=== PATIENT | female | born 1985 | race Caucasian/White ===

== ENCOUNTER 2019-07-31 18:25 | Emergency (ER) | payer OTHER ==
[2019-07-31] MEDS ORDERED: TYLENOL 325 MG PO ONE (18:38)
[2019-07-31] MEDS ORDERED: Robitussin AC Syrup Unit Dose Cup PO ONE (18:39)
[2019-07-31] MEDS ORDERED: Robitussin AC Syrup Unit Dose Cup ONE (18:42)
[2019-07-31] MEDS ORDERED: Sodium Chloride 0.9% 1000 ML 1,000 ML IV STA (18:42)
[2019-07-31] MEDS ORDERED: TYLENOL 325 MG ONE (18:42)
[2019-07-31] MEDS ORDERED: Sodium Chloride 0.9% 1000 ML 1,000 ML ONE (18:42)
--- NOTE | 2019-07-31 18:43 | ERPHSYRPT ---
- History of Present Illness Source: patient Exam Limitations: no limitations Patient Subjective Stated Complaint: Pt was diagnosed with lalita ear infections on Thursday, pt was placed on Augmentin but she feels worse now, cough, chest tightness, shortness of breath, headache Triage Nursing Assessment: Pt brought into the ER by her , lungs clear, denies pain but has a headache, pulses normal, tachycardic, afebrile, coughing Timing/Duration: day(s) (two) Cough Quality/Degree: dry cough Associated Symptoms: fever, chills, chest pain/soreness, cough, dizziness, earache, headache, muscle aches, sore throat International travel in last 2 weeks: No Hx Tetanus, Diphtheria Vaccination/Date Given: No Hx Influenza Vaccination/Date Given: No Hx Pneumococcal Vaccination/Date Given: No <ELAINA,MALIKA - Last Filed: 07/31/19 19:06> <ARTURO BLANKENSHIP)UMANG - Last Filed: 07/31/19 20:20> - History of Present Illness Time Seen by Provider: 07/31/19 18:40 Physician History: c/o cough, fever, chest congestion for 2 days Pt was diagnosed with bilateral ear infections on Thursday, pt was placed on Augmentin but she feels worse now, cough, chest tightness, shortness of breath, headache (ELAINA,MALIKA) Allergies/Adverse Reactions: levofloxacin [From Levaquin] Allergy (Severe, Verified 07/31/19 18:35) Hives Home Medications: Norgestimate-Ethinyl Estradiol [Ortho-Cyclen] 1 each PO DAILY 06/15/15 [History] - Review of Systems Constitutional: Fever, Chills, Malaise Eyes: No Symptoms Ears, Nose, & Throat: No Symptoms, Ear Pain Respiratory: Cough, Wheezing, No Dyspnea Cardiac: No Chest Pain, No Edema, No Syncope Abdominal/Gastrointestinal: No Abdominal Pain, No Nausea, No Vomiting, No Diarrhea Genitourinary Symptoms: No Dysuria Musculoskeletal: No Back Pain, No Neck Pain Skin: No Rash Neurological: No Dizziness, No Focal Weakness, No Sensory Changes Psychological: No Symptoms Endocrine: No Symptoms All Other Systems: Reviewed and Negative <ELAINA,MALIKA - Last Filed: 07/31/19 19:06> - Past Medical History Pertinent Past Medical History: No - Past Surgical History Past Surgical History: Yes Female Surgical History: Section Other Surgical History: breast reduction - Social History Smoking Status: Never smoker Exposure to second hand smoke: No Drug Use: none Patient Lives Alone: No - Female History Hx Last Menstrual Period: 07/28/2019 Hx Now: No <ELAINA - Last Filed: 07/31/19 19:06> - Physical Exam General Appearance: no apparent distress, alert Eye Exam: PERRL/EOMI, eyes nml inspection Ears, Nose, Throat Exam: normal ENT inspection, moist mucous membranes, TM abnormal (R), TM abnormal (L), pharyngeal erythema Neck Exam: normal inspection, non-tender, supple, full range of motion Respiratory Exam: diminished breath sounds, wheezing, No respiratory distress Cardiovascular Exam: regular rate/rhythm, normal heart sounds Gastrointestinal/Abdomen Exam: soft, No tenderness Back Exam: normal inspection, No CVA tenderness, No vertebral tenderness Extremity Exam: normal inspection, normal range of motion Neurologic Exam: alert, oriented x 3, cooperative, normal mood/affect, sensation nml, No motor deficits Skin Exam: normal color, warm, dry, No rash Lymphatic Exam: No adenopathy SpO2: 99 <ELAINA - Last Filed: 07/31/19 19:06> - Nursing Vital Signs Nursing Vital Signs: Initial Vital Signs Temperature 98.2 F 07/31/19 18:26 Pulse Rate 123 H 07/31/19 18:26 Blood Pressure 143/97 07/31/19 18:26 O2 Sat by Pulse Oximetry 99 07/31/19 18:26 Pain Scale Pain Intensity 0 - Course Nursing assessment & vital signs reviewed: Yes - Radiology Exams Chest X-ray Interpretation: Reviewed by az <ELAINA - Last Filed: 07/31/19 19:06> Ordered Tests: Active Orders 24 hr Category Date Time Status IV Insertion STAT Care 07/31/19 18:34 Active CHEST 2 VIEWS (PA AND LAT) Stat Exams 07/31/19 18:38 Taken BMP Stat Lab 07/31/19 18:43 Completed CBC W DIFF Stat Lab 07/31/19 18:43 Completed Medication Summary Generic Name Dose Route Start Last Admin Trade Name Freq PRN Reason Stop Dose Admin Benzonatate 100 mg 07/31/19 19:54 Tessalon Perles 100 Mg PO 08/30/19 19:53 TID PRN PRN COUGH Discontinued Medications Generic Name Dose Route Start Last Admin Trade Name Alecq PRN Reason Stop Dose Admin Acetaminophen 975 mg 07/31/19 18:38 07/31/19 18:53 Tylenol 325 Mg PO 07/31/19 18:39 975 mg STAT ONE Administration Acetaminophen Confirm 07/31/19 18:42 Tylenol 325 Mg Administered 07/31/19 18:43 Dose 975 mg .ROUTE .STK-MED ONE Albuterol/Ipratropium 3 ml 07/31/19 19:54 Duoneb 0.5-3 Mg/3 Ml Neb IH 07/31/19 19:55 STAT ONE Fluticasone Propionate 2 gm 07/31/19 19:56 Flonase Nasal NS 07/31/19 19:57 DAILY STA Guaifenesin/Codeine Phosphate 10 ml 07/31/19 18:39 07/31/19 18:54 Robitussin Ac Syrup Unit Dose Cup PO 07/31/19 18:40 10 ml STAT ONE Administration Guaifenesin/Codeine Phosphate Confirm 07/31/19 18:42 Robitussin Ac Syrup Unit Dose Cup Administered 07/31/19 18:43 Dose 10 ml .ROUTE .STK-MED ONE Sodium Chloride 1,000 mls @ 999 mls/hr 07/31/19 18:42 07/31/19 18:54 Sodium Chloride 0.9% 1000 Ml IV 07/31/19 19:42 999 mls/hr .Q1H1M STA Administration Sodium Chloride Confirm 07/31/19 18:42 Sodium Chloride 0.9% 1000 Ml Administered 07/31/19 18:43 Dose 1,000 mls @ ud .ROUTE .STK-MED ONE Loratadine/Pseudoephedrine Sulfate 1 each 07/31/19 19:54 Claritin-D 24hr Tablet PO 07/31/19 19:55 STAT ONE Lab/Rad Data: Laboratory Result Diagrams 07/31/19 18:43 07/31/19 18:43 Laboratory Results 07/31/19 07/31/19 07/31/19 Range/Units 18:44 18:43 18:43 WBC 6.9 (4.0-10.5) K/mm3 RBC 4.60 (4.1-5.4) M/mm3 Hgb 14.7 (12.0-16.0) gm/dl Hct 44.0 (35-47) % MCV 95.7 (78-100) fl MCH 32.0 (26-32) pg MCHC 33.4 (32-36) g/dl RDW 13.6 (11.5-14.0) % Plt Count 214 (150-450) K/mm3 MPV 10.7 H (6-9.5) fl Gran % 63.8 (36.0-66.0) % Eos # (Auto) 0.21 (0-0.5) Absolute Lymphs (auto) 1.42 (1.0-4.6) Absolute Monos (auto) 0.82 (0.0-1.3) Lymphocytes % 20.7 L (24.0-44.0) % Monocytes % 12.0 (0.0-12.0) % Eosinophils % 3.1 (0.00-5.0) % Basophils % 0.4 (0.0-0.4) % Absolute Granulocytes 4.37 (1.4-6.9) Basophils # 0.03 (0-0.4) Sodium 139 (137-145) mmol/L Potassium 3.9 (3.5-5.1) mmol/L Chloride 104 (98-107) mmol/L Carbon Dioxide 26 (22-30) mmol/L Anion Gap 13.1 (5-15) MEQ/L BUN 9 (7-17) mg/dL Creatinine 0.75 (0.52-1.04) mg/dL Estimated GFR > 60.0 ML/MIN Glucose 110 H (74-106) mg/dL Calcium 9.2 (8.4-10.2) mg/dL Influenza Type A Ag NEGATIVE (NEGATIVE) Influenza Type B Ag NEGATIVE (NEGATIVE) RSV (PCR) POSITIVE (Negative) Group A Strep Antibody NEGATIVE (NEGATIVE) <MALIKA DELANEY - Last Filed: 07/31/19 19:06> - Progress Progress: re-examined Air Movement: fair <ARTURO (ED PHY)UMANG - Last Filed: 07/31/19 20:20> - Progress Progress Note: 07/31/19 19:59 CXR reviewed an maybe some mild perihilar inflammation associated with a viral type illness but no infiltrate. Pt tachepnic and mouth breathing. Pt complaining of not being able to breath thru her congested nose. Pt is RSV + but strep and flu negative. Pt wasinformed of her lab and CXR results and told that it should all go away on its own after a couple of days. I did explain to the pt that this is normally an illness that small children get that can cause croup. I suggested humidified air and some over the counter meds. See also discharge instructions. (ARTURO (ED PHY),UMANG Brar) <MALIKA DELANEY - Last Filed: 07/31/19 19:06> - Departure Departure Disposition: Home Critical Care Time: No <ARTURO (ED PHY)UMANG - Last Filed: 07/31/19 20:20> - Departure Clinical Impression: RSV/bronchiolitis Condition: Stable Referrals: MARCUS COLON [Primary Care Provider] - Additional Instructions: Pt should take Olena D as prescribed and Flonase as well as Tesselon perles and humidify the air that you are breathing especially at night. You are contagious to small children especially. You may use the albuterol inhaler prescribed to you. Follow up with your primary care physician in the next 3-5 days if not improveing or if worse at any time. Return to the ER with emergent medical problems. Prescriptions: Benzonatate [Tessalon Perle] 100 mg PO Q8H PRN PRN 7 Days #21 capsule PRN Reason: Cough Fexofenadine/Pseudoephedrine [Olena-D 12 Hour Tablet] 1 each PO Q12H PRN PRN 7 Days #15 tab.er.12h PRN Reason: Sinus Congestion Albuterol 8 gm Mdi Hfa [Ventolin Hfa MDI] 8 gm IH Q4-6HPRN PRN 10 Days #1 hfa.aer.ad PRN Reason: Cough
[2019-07-31 18:47] LABS: Absolute Neutrophil Ct (ANC) 4.37 (1.4-6.9); BASOPHIL % 0.4 % (0.0-0.4); Basophil (Absolute #) 0.03 (0-0.4); Eosinophil % 3.1 % (0.00-5.0); Eosinophil (Absolute #) 0.21 (0-0.5); Hemoglobin 14.7 gm/dl (12.0-16.0); Lymphocyte (Absolute #) 1.42 (1.0-4.6); Lymphocytes % 20.7 % (24.0-44.0); Mean Cell Volume 95.7 fl (78-100); Mean Corpuscular Hgb Concent. 33.4 g/dl (32-36); Mean Platelet Volume 10.7 fl (6-9.5); Monocyte (Absolute #) 0.82 (0.0-1.3); Neutrophil % 63.8 % (36.0-66.0); Platelet Count 214 K/mm3 (150-450); Red Cell Distribution Width 13.6 % (11.5-14.0); White Blood Count 6.9 K/mm3 (4.0-10.5)
[2019-07-31 18:57] LABS: ANION GAP 13.1 MEQ/L (5-15); BLOOD UREA NITROGEN 9 mg/dL (7-17); CHLORIDE 104 mmol/L (98-107); Calcium 9.2 mg/dL (8.4-10.2); Carbon Dioxide 26 mmol/L (22-30); Creatinine 1 0.75 mg/dL (0.52-1.04); Glucose 110 mg/dL (74-106); Potassium 3.9 mmol/L (3.5-5.1); SODIUM 139 mmol/L (137-145)
[2019-07-31 19:22] LABS: INFLUENZA A NEGATIVE (NEGATIVE); INFLUENZA B NEGATIVE (NEGATIVE); RESPIRATORY SYNCTIAL VIRUS POSITIVE (Negative)
[2019-07-31] MEDS ORDERED: CLARITIN-D 24HR TABLET PO ONE (19:54)
[2019-07-31] MEDS ORDERED: Tessalon Perles 100 MG PO PRN (19:54)
[2019-07-31] MEDS ORDERED: DUONEB 0.5-3 MG/3 ml Neb IH ONE ×2 (19:54→20:02)
[2019-07-31] MEDS ORDERED: Flonase NASAL NS STA (19:56)
[2019-07-31] MEDS ORDERED: Tessalon Perles 100 MG PO ONE (20:03)
[2019-07-31] MEDS ORDERED: Flonase NASAL NS ONE (20:06)
[2019-07-31] MEDS ORDERED: CLARITIN 10 MG PO ONE (20:23)
[2019-07-31 20:58] VITALS: BP 127/92; PULSE 84; O2SAT 99
--- NOTE | 2019-08-01 08:38 | XRAY ---
Indication: Cough and congestion 5 days. Comparison: None PA/lateral chest demonstrates normal heart, lungs, and bony thorax.
== END 2019-07-31 21:06 | disposition home or self-care (01) ==
LOC: ED 18:25
DX: J21.0 Acute bronchiolitis due to respiratory syncytial virus (principal)
CPT/HCPCS: 36000; 36415; 71046; 80048; 85025; 87631; 87651; 94150; 94640; 99284; A9270-GY

== ENCOUNTER 2021-08-13 15:55 | Observation (INO) | payer SELFPAY ==
[2021-08-13] MEDS ORDERED: Sodium Chloride 0.9% 1000 ML 1,000 ML IV STA (16:20)
[2021-08-13] MEDS ORDERED: Zofran 4 MG/2 ML VIAL IV ONE (16:20)
[2021-08-13] MEDS ORDERED: Hydromorphone 1 mg/ml Injection IV ONE ×3 (16:20→18:28)
--- NOTE | 2021-08-13 16:20 | ERPHSYRPT ---
- History of Present Illness Time Seen by Provider: 08/13/21 16:18 Historian: patient Exam Limitations: no limitations Patient Subjective Stated Complaint: pt here for lower right abd pain since 6 last night with vomiting last night, none today. pt has chronice abd pain off and on for last couple years Triage Nursing Assessment: pt alert, walked in hutched over, skin w/d/p, face mask in place , abd soft, last bm thursday, Physician History: Patient is a 36-year-old white female presents with abdominal pain in the right lower quadrant since last night approximately 6:00. There is been some nausea and vomiting she has not checked her temperature. She has a history of recurrent chronic abdominal pain her only previous abdominal surgeries would be . Timing/Duration: yesterday Activities at Onset: none Quality: stabbing, throbbing Abdominal Pain Onset Location: RLQ Severity of Pain-Max: moderate Severity of Pain-Current: moderate Modifying Factors: Improves With: movement Associated Symptoms: nausea, vomiting Previous symptoms: same symptoms as today Allergies/Adverse Reactions: levofloxacin [From Levaquin] Allergy (Severe, Verified 08/13/21 16:18) Hives Home Medications: No Reportable Medications [No Reported Medications] 08/13/21 [History] Hx Tetanus, Diphtheria Vaccination/Date Given: No Hx Influenza Vaccination/Date Given: No Hx Pneumococcal Vaccination/Date Given: No Immunizations Up to Date: Yes Travel Risk - International Travel Have you traveled outside of the country in past 3 weeks: No - Coronavirus Screening Close contact with a COVID-19 positive Pt in past 14-21 Days: No - Vaccine Status Have you recieved a Covid-19 vaccination: No - Review of Systems Constitutional: No Fever, No Chills Eyes: No Symptoms Ears, Nose, & Throat: No Symptoms Respiratory: No Cough, No Dyspnea Cardiac: No Chest Pain, No Edema, No Syncope Abdominal/Gastrointestinal: Abdominal Pain, Nausea, Vomiting, No Diarrhea Genitourinary Symptoms: No Dysuria Musculoskeletal: No Back Pain, No Neck Pain Skin: No Rash Neurological: No Dizziness, No Focal Weakness, No Sensory Changes Psychological: No Symptoms Endocrine: No Symptoms All Other Systems: Reviewed and Negative - Past Medical History Pertinent Past Medical History: No - Past Surgical History Past Surgical History: Yes Female Surgical History: Section Other Surgical History: breast reduction - Social History Smoking Status: Never smoker Exposure to second hand smoke: No Drug Use: none Patient Lives Alone: No - Female History Hx Last Menstrual Period: irregular Hx Now: No - Nursing Vital Signs Nursing Vital Signs: Initial Vital Signs Temperature 98.6 F 08/13/21 16:13 Pulse Rate 93 H 08/13/21 16:13 Respiratory Rate 18 08/13/21 16:13 Blood Pressure 146/94 08/13/21 16:13 O2 Sat by Pulse Oximetry 98 08/13/21 16:13 Pain Scale Pain Intensity 8 - Physical Exam General Appearance: no apparent distress, alert Eye Exam: PERRL/EOMI, eyes nml inspection Ears, Nose, Throat Exam: normal ENT inspection, pharynx normal, moist mucous membranes Neck Exam: normal inspection, non-tender, supple, full range of motion Respiratory Exam: normal breath sounds, lungs clear, No respiratory distress Cardiovascular Exam: regular rate/rhythm, normal heart sounds Gastrointestinal/Abdomen Exam: tenderness, guarding, rebound, No normal bowel sounds (Bowel sounds are decreased), No mass Pelvic Exam: not done Back Exam: normal inspection, normal range of motion, No CVA tenderness, No vertebral tenderness Extremity Exam: normal inspection, normal range of motion, pelvis stable Neurologic Exam: alert, oriented x 3, cooperative, normal mood/affect, nml cerebellar function, sensation nml, No motor deficits Skin Exam: normal color, warm, dry SpO2: 98 - Course Nursing assessment & vital signs reviewed: Yes - Radiology Exams Chest X-ray Interpretation: Negative - CT Exams Abdomen/Pelvis CT Interpretation: appendicitis Ordered Tests: Active Orders 24 hr Category Date Time Status IV Insertion STAT Care 08/13/21 16:20 Active ABDOMEN AND PELVIS W CONTRAST [CT] Stat Exams 08/13/21 16:21 Taken CHEST 1 VIEW (PORTABLE) Stat Exams 08/13/21 16:21 Taken AMYLASE Stat Lab 08/13/21 16:30 Completed CBC W DIFF Stat Lab 08/13/21 16:30 Completed CMP Stat Lab 08/13/21 16:30 Completed HCG,QUALITATIVE URINE Stat Lab 08/13/21 16:25 Completed LIPASE Stat Lab 08/13/21 16:30 Completed Lactic Acid Stat Lab 08/13/21 16:20 Completed PROTIME WITH INR Stat Lab 08/13/21 16:30 Completed UA W/RFX UR CULTURE Stat Lab 08/13/21 16:25 Completed Medication Summary Discontinued Medications Generic Name Dose Route Start Last Admin Trade Name Landry PRN Reason Stop Dose Admin Hydromorphone HCl 0.5 mg 08/13/21 16:20 08/13/21 16:29 Hydromorphone 1 Mg/1ml Inj 1 Mg/Ml Syringe IV 08/13/21 16:21 0.5 mg STAT ONE Administration Hydromorphone HCl Confirm 08/13/21 16:27 Hydromorphone 1 Mg/1ml Inj 1 Mg/Ml Syringe Administered 08/13/21 16:28 Dose 1 mg .ROUTE .STK-MED ONE Hydromorphone HCl Confirm 08/13/21 17:36 Hydromorphone 1 Mg/1ml Inj 1 Mg/Ml Syringe Administered 08/13/21 17:37 Dose 1 mg .ROUTE .STK-MED ONE Hydromorphone HCl 1 mg 08/13/21 17:42 08/13/21 17:43 Hydromorphone 1 Mg/1ml Inj 1 Mg/Ml Syringe IV 08/13/21 17:43 1 mg STAT ONE Administration Sodium Chloride 1,000 mls @ 999 mls/hr 08/13/21 16:20 08/13/21 17:30 Sodium Chloride 0.9% 1000 Ml IV 08/13/21 17:20 Infused .Q1H1M STA Infusion Sodium Chloride Confirm 08/13/21 16:28 Sodium Chloride 0.9% 1000 Ml Administered 08/13/21 16:29 Dose 1,000 mls @ ud .ROUTE .STK-MED ONE Ondansetron HCl 4 mg 08/13/21 16:20 08/13/21 16:29 Ondansetron Hcl 4 Mg/2 Ml Vial IV 08/13/21 16:21 4 mg STAT ONE Administration Ondansetron HCl Confirm 08/13/21 16:27 Ondansetron Hcl 4 Mg/2 Ml Vial Administered 08/13/21 16:28 Dose 4 mg .ROUTE .STK-MED ONE Lab/Rad Data: Laboratory Result Diagrams 08/13/21 16:30 08/13/21 16:30 Laboratory Results 08/13/21 08/13/21 08/13/21 Range/Units 16:30 16:30 16:30 WBC 17.2 H (4.0-10.5) K/mm3 RBC 4.45 (4.1-5.4) M/mm3 Hgb 14.0 (12.0-16.0) gm/dl Hct 42.6 (35-47) % MCV 95.7 (78-100) fl MCH 31.5 (26-32) pg MCHC 32.9 (32-36) g/dl RDW 13.8 (11.5-14.0) % Plt Count 220 (150-450) K/mm3 MPV 10.3 (7.5-11.0) fl Gran % 85.2 H (36.0-66.0) % Eos # (Auto) 0.01 (0-0.5) Absolute Lymphs (auto) 1.05 (1.0-4.6) Absolute Monos (auto) 1.47 H (0.0-1.3) Lymphocytes % 6.1 L (24.0-44.0) % Monocytes % 8.5 (0.0-12.0) % Eosinophils % 0.1 (0.00-5.0) % Basophils % 0.1 (0.0-0.4) % Absolute Granulocytes 14.66 H (1.4-6.9) Basophils # 0.01 (0-0.4) PT 12.2 (9.4-12.5) SECONDS INR 1.03 (0.8-3.0) Sodium 132 L (137-145) mmol/L Potassium 4.8 (3.5-5.1) mmol/L Chloride 100 (98-107) mmol/L Carbon Dioxide 21 L (22-30) mmol/L Anion Gap 15.7 H (5-15) MEQ/L BUN 9 (7-17) mg/dL Creatinine 0.66 (0.52-1.04) mg/dL Estimated GFR > 60.0 ML/MIN Glucose 97 (74-106) mg/dL Lactic Acid (0.4-2.0) Calcium 9.4 (8.4-10.2) mg/dL Total Bilirubin 1.30 (0.2-1.3) mg/dL AST 43 H (14-36) U/L ALT 44 H (0-35) U/L Alkaline Phosphatase 113 (38-126) U/L Serum Total Protein 7.8 (6.3-8.2) g/dL Albumin 4.6 (3.5-5.0) g/dL Amylase 65 (30-110) U/L Lipase 25 (23-300) U/L Urine Color (YELLOW) Urine Appearance (CLEAR) Urine pH (5-6) Ur Specific War (1.005-1.025) Urine Protein (Negative) Urine Ketones (NEGATIVE) Urine Blood (0-5) Nolan/ul Urine Nitrite (NEGATIVE) Urine Bilirubin (NEGATIVE) Urine Urobilinogen (0-1) mg/dL Ur Leukocyte Esterase (NEGATIVE) Urine WBC (Auto) (0-5) /HPF Urine RBC (Auto) (0-2) /HPF U Epithel Cells (Auto) (FEW) /HPF Urine Bacteria (Auto) (NEGATIVE) /HPF Urine Mucus (Auto) (NEGATIVE) /HPF Urine Culture Reflexed (NO) Urine Glucose (NEGATIVE) mg/dL Urine HCG, Qual (Negative) 08/13/21 08/13/21 08/13/21 Range/Units 16:25 16:25 16:20 WBC (4.0-10.5) K/mm3 RBC (4.1-5.4) M/mm3 Hgb (12.0-16.0) gm/dl Hct (35-47) % MCV (78-100) fl MCH (26-32) pg MCHC (32-36) g/dl RDW (11.5-14.0) % Plt Count (150-450) K/mm3 MPV (7.5-11.0) fl Gran % (36.0-66.0) % Eos # (Auto) (0-0.5) Absolute Lymphs (auto) (1.0-4.6) Absolute Monos (auto) (0.0-1.3) Lymphocytes % (24.0-44.0) % Monocytes % (0.0-12.0) % Eosinophils % (0.00-5.0) % Basophils % (0.0-0.4) % Absolute Granulocytes (1.4-6.9) Basophils # (0-0.4) PT (9.4-12.5) SECONDS INR (0.8-3.0) Sodium (137-145) mmol/L Potassium (3.5-5.1) mmol/L Chloride (98-107) mmol/L Carbon Dioxide (22-30) mmol/L Anion Gap (5-15) MEQ/L BUN (7-17) mg/dL Creatinine (0.52-1.04) mg/dL Estimated GFR ML/MIN Glucose (74-106) mg/dL Lactic Acid 0.9 (0.4-2.0) Calcium (8.4-10.2) mg/dL Total Bilirubin (0.2-1.3) mg/dL AST (14-36) U/L ALT (0-35) U/L Alkaline Phosphatase (38-126) U/L Serum Total Protein (6.3-8.2) g/dL Albumin (3.5-5.0) g/dL Amylase (30-110) U/L Lipase (23-300) U/L Urine Color YELLOW (YELLOW) Urine Appearance SLIGHTLY CLOUDY (CLEAR) Urine pH 6.0 (5-6) Ur Specific War 1.023 (1.005-1.025) Urine Protein NEGATIVE (Negative) Urine Ketones MODERATE (NEGATIVE) Urine Blood NEGATIVE (0-5) Nolan/ul Urine Nitrite NEGATIVE (NEGATIVE) Urine Bilirubin NEGATIVE (NEGATIVE) Urine Urobilinogen NEGATIVE (0-1) mg/dL Ur Leukocyte Esterase NEGATIVE (NEGATIVE) Urine WBC (Auto) NONE (0-5) /HPF Urine RBC (Auto) NONE (0-2) /HPF U Epithel Cells (Auto) RARE (FEW) /HPF Urine Bacteria (Auto) NONE (NEGATIVE) /HPF Urine Mucus (Auto) SLIGHT (NEGATIVE) /HPF Urine Culture Reflexed NO (NO) Urine Glucose NEGATIVE (NEGATIVE) mg/dL Urine HCG, Qual NEGATIVE (Negative) - Progress Progress: unchanged Progress Note: 08/13/21 18:21 With return of the CT scan and the diagnosis of acute appendicitis we did call Dr. Persaud*to admit this patient to the PCP and that he would be in the building to performance appendectomy later this evening. Discussed with : Odalis Will see patient in: hospital (observation) - Departure Departure Disposition: Observation Clinical Impression: Acute appendicitis Condition: Stable Critical Care Time: No Referrals: MARCUS COLON [Primary Care Provider] - Follow up/PCP as directed
[2021-08-13] MEDS ORDERED: Zofran 4 MG/2 ML VIAL ONE ×2 (16:27→19:45)
[2021-08-13] MEDS ORDERED: Hydromorphone 1 mg/ml Injection ONE ×4 (16:27→21:57)
[2021-08-13] MEDS ORDERED: Sodium Chloride 0.9% 1000 ML 1,000 ML ONE ×2 (16:28→18:32)
[2021-08-13 16:41] LABS: Absolute Neutrophil Ct (ANC) 14.66 (1.4-6.9); Basophil (Absolute #) 0.01 (0-0.4); Eosinophil % 0.1 % (0.00-5.0); Eosinophil (Absolute #) 0.01 (0-0.5); Hematocrit 42.6 % (35-47); Lymphocyte (Absolute #) 1.05 (1.0-4.6); Lymphocytes % 6.1 % (24.0-44.0); Mean Cell Volume 95.7 fl (78-100); Mean Corpuscular Hemoglobin 31.5 pg (26-32); Mean Corpuscular Hgb Concent. 32.9 g/dl (32-36); Mean Platelet Volume 10.3 fl (7.5-11.0); Monocyte (Absolute #) 1.47 (0.0-1.3); Monocytes % 8.5 % (0.0-12.0); Neutrophil % 85.2 % (36.0-66.0); Platelet Count 220 K/mm3 (150-450); Red Blood Count 4.45 M/mm3 (4.1-5.4); Red Cell Distribution Width 13.8 % (11.5-14.0); White Blood Count 17.2 K/mm3 (4.0-10.5)
[2021-08-13 16:46] LABS: Appearance SLIGHTLY CLOUDY (CLEAR); Bilirubin NEGATIVE (NEGATIVE); Blood NEGATIVE Ery/ul (0-5); Epithelial Cells RARE /HPF (FEW); Glucose NEGATIVE (NEGATIVE); Ketones MODERATE (NEGATIVE); Leukocyte Esterase NEGATIVE (NEGATIVE); Mucus SLIGHT /HPF (NEGATIVE); Nitrite NEGATIVE (NEGATIVE); Protein,Urine Dip NEGATIVE (Negative); Specific Gravity 1.023 (1.005-1.025); Urobilinogen NEGATIVE mg/dL (0-1)
[2021-08-13 16:51] LABS: INR 1.03 (0.8-3.0); PROTIME 12.2 SECONDS (9.4-12.5)
[2021-08-13 16:54] LABS: ALBUMIN 4.6 g/dL (3.5-5.0); ALKALINE PHOSPHATASE 113 U/L (38-126); AMYLASE 65 U/L (30-110); ANION GAP 15.7 MEQ/L (5-15); BLOOD UREA NITROGEN 9 mg/dL (7-17); CHLORIDE 100 mmol/L (98-107); Calcium 9.4 mg/dL (8.4-10.2); Carbon Dioxide 21 mmol/L (22-30); Creatinine 1 0.66 mg/dL (0.52-1.04); EST GLOMERULAR FILTRATION RATE > 60.0 ML/MIN; Glucose 97 mg/dL (74-106); LIPASE 25 U/L (23-300); Potassium 4.8 mmol/L (3.5-5.1); SGOT/AST 43 U/L (14-36); SGPT/ALT 44 U/L (0-35); SODIUM 132 mmol/L (137-145); Total Protein 7.8 g/dL (6.3-8.2)
[2021-08-13] MEDS ORDERED: Hydromorphone 1 mg/ml Injection IV PRN ×2 (18:23→22:44)
[2021-08-13] MEDS ORDERED: Sodium Chloride 100ML MINI-BAG PLUS 100 ML IV ONE ×2 (18:29→23:33)
[2021-08-13] MEDS ORDERED: Zosyn 3.375 GM Vial IV ONE ×2 (18:29→23:31)
[2021-08-13] MEDS ORDERED: Sodium Chloride 0.9% 1000 ML 1,000 ML IV SCH (18:30)
[2021-08-13 18:58] LABS: INFLUENZA A NEGATIVE (NEGATIVE); INFLUENZA B NEGATIVE (NEGATIVE); RESPIRATORY SYNCTIAL VIRUS NEGATIVE (Negative); SARS-CoV-2 Xpert Express NEGATIVE (NEGATIVE)
[2021-08-13] MEDS ORDERED: Lactated Ringers 1,000 ML IV ONE ×2 (19:17→19:33)
[2021-08-13] MEDS ORDERED: Sensorcaine 0.25% 10 ML ONE (19:17)
[2021-08-13] MEDS ORDERED: BRIDION 200MG/2ML IV ONE (19:45)
[2021-08-13] MEDS ORDERED: SUBLIMAZE 100 MCG/2 ML ONE ×2 (19:45→21:24)
[2021-08-13] MEDS ORDERED: TORAdol 30 mg Injection ONE (19:45)
[2021-08-13] MEDS ORDERED: Xylocaine-Mpf 2% 5 Ml Vial ONE (19:45)
[2021-08-13] MEDS ORDERED: Zemuron 100 MG/10 ML ONE (19:45)
[2021-08-13] MEDS ORDERED: Decadron 4 MG INJ ONE (19:45)
[2021-08-13] MEDS ORDERED: DIPRIVAN 200 MG/20 ML IV ONE (19:45)
[2021-08-13] MEDS ORDERED: MEFOXIN 2 GM PREMIX** 2 GM/50 ML ML IV ONE (20:51)
[2021-08-13] MEDS ORDERED: MORPHINE SULFATE 2 MG INJ ONE (21:42)
[2021-08-13] MEDS ORDERED: MORPHINE SULFATE 4 MG INJ ONE (22:54)
[2021-08-13] MEDS: MORPHINE SULFATE 4 MG INJ IV PRN (22:56)
[2021-08-13] MEDS ORDERED: Zofran 4 MG/2 ML VIAL IV PRN (23:08)
[2021-08-13] MEDS ORDERED: DEXTROSE 5% -NACL 0.9% 1000 ML + KCl 20 MEQ 1,000 ML IV SCH (23:30)
[2021-08-13] MEDS ORDERED: DEXTROSE 5% -NACL 0.9% 1000 ML + KCl 20 MEQ 1,000 ML IV ONE (23:32)
[2021-08-13] MEDS: Zosyn 3.375 GM Vial 3.375 GM in Sodium Chloride 100ML MINI-BAG PLUS 100 ML IV SCH (23:38)
[2021-08-14] MEDS ORDERED: Zosyn 3.375 GM Vial 3.375 GM in Sodium Chloride 100ML MINI-BAG PLUS 100 ML IV SCH ×2
[2021-08-14] MEDS: MORPHINE SULFATE 4 MG INJ IV PRN ×2 (00:23→04:24)
[2021-08-14] MEDS ORDERED: MORPHINE SULFATE 4 MG INJ ONE ×2 (00:23→04:23)
[2021-08-14] MEDS: Zosyn 3.375 GM Vial 3.375 GM in Sodium Chloride 100ML MINI-BAG PLUS 100 ML IV SCH ×2 (00:30→05:56)
[2021-08-14] MEDS ORDERED: D5W/0.45NS W/ 20mEq KCl 1000 ML 1,000 ML IV ONE (01:09)
[2021-08-14] MEDS ORDERED: D5W/0.45NS W/ 20mEq KCl 1000 ML 1,000 ML IV SCH (01:30)
[2021-08-14] MEDS ORDERED: Sodium Chloride 100ML MINI-BAG PLUS 100 ML IV ONE (05:05)
[2021-08-14] MEDS ORDERED: Zosyn 3.375 GM Vial IV ONE (05:05)
--- NOTE | 2021-08-14 08:02 | HP ---
HISTORY OF PRESENT ILLNESS: The patient is a 36-year-old female had some abdominal pain, some vomiting started yesterday evening. It localized to the right lower quadrant. She had CT scan here with question of acute appendicitis. PAST MEDICAL HISTORY: She denies any major chronic illnesses. PAST SURGICAL HISTORY: section in the past. Breast reduction. HOME MEDICATIONS: I thought she said she does not take medications on a regular basis. ALLERGIES: LEVAQUIN. FAMILY HISTORY: Negative in regards to this problem. SOCIAL HISTORY: No smoking. REVIEW OF SYSTEMS: Fourteen systems reviewed. No chest pain or palpitations other systems negative or noncontributory as above and per preadmission questionnaire. PHYSICAL EXAMINATION: GENERAL: No acute distress. HEENT: Sclera nonicteric. NECK: No JVD. CHEST: Equal excursion, nonlabored breathing. CVS: Regular rate and rhythm. ABDOMEN: Soft, some tenderness in right lower quadrant. No peritoneal signs. EXTREMITIES: No signficant edema. NEURO: Alert, moving extremities grossly symmetrically. PSYCH: Appropriate mood and affect. IMPRESSION: Acute right lower quadrant pain. CT and history suggestive for acute appendicitis. I feel the patient will benefit from laparoscopic appendectomy possible open. Risks and benefits explained in detail including but not limited to bleeding or infection, risk of trocar injury or hernia, risk of bowel, bladder or blood vessel injury, risk of bile leak, bile duct injury, retained stone or sludge, risk of subsequent intra-abdominal abscess formation or fistula formation possibly requiring percutaneous or open drainage even at a later date. General risk of anesthesia, deep venous thrombosis, pulmonary embolism, pneumonia, possible risk of ongoing infection, ileus or obstruction, possibility of finding a normal appendix likely remove incidentally and look for other etiology that might need taken care of surgically, possible need for open procedure. She understands as well as general risk of anesthesia, deep vein thrombosis, pulmonary embolism, pneumonia. Will proceed with laparoscopic appendectomy possible open when OR time available.
--- NOTE | 2021-08-14 08:13 | OP ---
SURGERY DATE/TIME: 08/13/20212028 PREOPERATIVE DIAGNOSIS: Right lower quadrant pain evaluate for acute appendicitis. POSTOPERATIVE DIAGNOSIS: Acute nonperforated appendicitis. PROCEDURE: Laparoscopic appendectomy. SURGEON: Dr. Wojciech Shay. ANESTHESIA: General. ESTIMATED BLOOD LOSS: Minimal. INDICATIONS: As noted above. Risks and benefits explained in detail but not limited to, consent obtained. DESCRIPTION OF PROCEDURE AND FINDINGS: The patient was taken to the operating room. General anesthesia induced. Abdomen prepped and draped in usual sterile fashion. After official time out and no disagreement with planned procedure, a supraumbilical port site placed, incision made. The Veress needle inserted. Pneumoperitoneum accomplished insufflating from opening pressure of 0 to 15. A 5 mm bladeless port and camera were inserted without difficulty followed by a lower midline 5 mm port and a right mid abdomen 12 mm port. The appendix was acutely suppurative and stuck over out to the lateral side wall. It is carefully mobilized upwards. EndoGIA stapler fired across the base of the appendix to cecum. Sequential reloads fired across the mesoappendix. It is then placed in a bag, pulled free and passed off. Port is replaced. Copious amount of irrigation accomplished along the right gutter and right lower quadrant irrigating clear. Staple line intact on the mesoappendix and on the cecum. No signs of any active bleeding or leakage. It was felt there was no benefit in drain placement. It is felt that she should do early ambulation, SCD's for deep vein thrombosis prophylaxis as she had been a little bit raw. Otherwise the fascial defect 12 mm site closed with puncture closure device with #1 Vicryl. Pneumoperitoneum decompressed. The wound is irrigated out. Skin incision closed with 4-0 Vicryl. Steri-Strips and sterile dressing applied. 0.25% Marcaine local injected along the skin incision fascial defects. The patient tolerated the procedure well. There were no immediate complications. I will update the family with the findings.
[2021-08-14 08:34] VITALS: BP 101/55; PULSE 72; O2SAT 96
--- NOTE | 2021-08-14 08:51 | XRAY ---
Indication: Right lower quadrant pain and nausea. Multiple contiguous axial images obtained through the abdomen and pelvis using 80 cc Isovue 370 contrast. Comparison: June 15, 2015. Lung bases again demonstrates dependent atelectasis. Heart is not enlarged. Noncontrasted stomach and bowel loops nonobstructed. Retrocecal appendix is now prominent up to 12 mm with periappendiceal stranding favoring acute appendicitis. Tiny cul-de-sac fluid either reactive versus ruptured/leaking cyst. No free air. Incidental 2.7 cm right ovary cyst. Remaining liver, gallbladder, pancreas, spleen, adrenal glands, kidneys, ureters, bladder, uterus, and aorta are unremarkable. No pathologic retroperitoneal lymphadenopathy. Osseous structures intact. Impression: 1. New acute appendicitis with tiny cul-de-sac fluid. 2. New 2.7 cm dominant right ovary cyst.
--- NOTE | 2021-08-14 08:57 | XRAY ---
Indication: Right lower quadrant pain. Comparison: July 31, 2019. Portable chest again demonstrates normal heart, lungs, and bony thorax.
[2021-08-14 10:45] LABS: Absolute Neutrophil Ct (ANC) 12.73 (1.4-6.9); Basophil (Absolute #) 0 (0-0.4); Eosinophil (Absolute #) 0 (0-0.5); Hematocrit 38.4 % (35-47); Hemoglobin 12.5 gm/dl (12.0-16.0); Lymphocyte (Absolute #) 0.61 (1.0-4.6); Lymphocytes % 4.3 % (24.0-44.0); Mean Cell Volume 97.7 fl (78-100); Mean Corpuscular Hemoglobin 31.8 pg (26-32); Mean Corpuscular Hgb Concent. 32.6 g/dl (32-36); Mean Platelet Volume 10.2 fl (7.5-11.0); Monocyte (Absolute #) 0.71 (0.0-1.3); Monocytes % 5.1 % (0.0-12.0); Neutrophil % 90.6 % (36.0-66.0); Platelet Count 235 K/mm3 (150-450); Red Blood Count 3.93 M/mm3 (4.1-5.4); Red Cell Distribution Width 13.9 % (11.5-14.0); White Blood Count 14.1 K/mm3 (4.0-10.5)
--- NOTE | 2021-08-14 14:14 | DS ---
DISCHARGE DIAGNOSIS: ACUTE APPENDICITIS. PROCEDURE: Laparoscopic appendectomy by Dr. Pedro Luis Shay. HISTORY: The patient is a 36-year-old white female who presented after 24 hours of right lower quadrant abdominal pain getting worse and presented to the emergency room. She had a CT scan which revealed inflammation and stranding consistent with appendicitis. PAST MEDICAL/SURGICAL HISTORY: Essentially a healthy young lady with no significant medical problems. She has had previous section and breast reduction surgeries. HOME MEDICATIONS: None. ALLERGIES: LEVOFLOXACIN. PHYSICAL EXAMINATION: The patient's vital signs on admission showed her temperature to be 98.6F, pulse 93, respiratory rate 18 and blood pressure 146/94. O2 saturation 98%. HEENT: Currently normocephalic, atraumatic. Pupils equal round reactive to light. Extraocular movements intact. Oropharynx is pink and moist. NECK: Supple without lymphadenopathy, thyromegaly or JVD. CHEST: Clear to auscultation. HEART: Regular rate and rhythm without murmurs, rubs or gallops. ABDOMEN: Shows the recent laparoscopic appendectomy wound which appear without any significant drainage or bleeding. EXTREMITIES: Without cyanosis, clubbing or edema. NEUROLOGIC: The patient is alert and oriented x3. No focal deficits are noted. LAB DATA AND TESTS: The patient's laboratory studies showed a normal UA. She had a negative COVID, respiratory syncytial virus influenza test. Lactic acid 0.9. HCG was negative. INR was 1.03. Metabolic panel showed a slightly low sodium at 132. Her AST and ALT were slightly elevated at 43 and 44 respectively. Amylase and lipase were normal. The patient's white count was elevated at 17.2 with hemoglobin 14.0 and PLT count 220,000. The CT scan showed new acute appendicitis with tiny cul-de-sac fluid. Chest x-ray was normal. HOSPITAL COURSE: The patient was taken to the surgery department later that evening. She had laparoscopic appendectomy. The patient has done very well since then. She has had a regular meal. She is up and walking around with no significant pain at this time. The patient was felt to be ready for discharge home on Augmentin 875 twice a day for a week and she was called in some [place] for pain control from the surgeon. She will see the surgeon in follow up in one week and she is to see me any time should she have any further problems or questions.
== END 2021-08-14 11:20 | disposition home or self-care (01) ==
LOC: ED 15:55 → INTOOBSV 22:42 → UNDOADMIN 22:42 → MED SURG 22:42
PROVIDERS: ADMIT Surgery; ATTEND Surgery
DX: K35.80 Unspecified acute appendicitis (principal); Z20.828 Contact with and (suspected) exposure to other viral communicable diseases
CPT/HCPCS: 0241U; 36000; 36415; 44970; 71045; 74177; 80053; 81001; 82150; 83605; 83690; 84703; 85025; 85610; 96374; 96375; 96376; 99284; G0378; J0694; J1100; J1170; J1885; J2270; J2405; J2704; J3010; L0625

== ENCOUNTER 2021-09-12 10:58 | Emergency (ER) | payer SELFPAY ==
--- NOTE | 2021-09-12 12:07 | ERPHSYRPT ---
- History of Present Illness Time Seen by Provider: 09/12/21 11:15 Historian: patient Exam Limitations: no limitations Patient Subjective Stated Complaint: Pt had an emergent appendectomy on the 13 of August and she is having severe pain under one of the incision sites, pt called Dr. Hughes and he advised her to come to the ER and have a CT done, pains began approx 4 days ago just when the pt is moving Triage Nursing Assessment: Pt brought self to the ER, vitals wnl, rates pain upon movement as a 10/10, no redness or swelling to the incision site, no difficulties after surgery, pulses normal, skin n/w/d, guarding abdomen Physician History: 36 years old female laparoscopic appendectomy almost a month ago presented in the ER with chief complaint of right-sided abdominal pain for the last 2 days around port insertion incisions. Did not notice any swelling or erythema or discharge from incision area which is well-healed now. Pain is moderate to severe sharp, more with palpation/movement and better with resting, nonradiating, without associated nausea vomiting or diarrhea. Does report having constipation. No fever or chills reported. Timing/Duration: day(s) (2), intermittent, gradual onset, worse Activities at Onset: activity Quality: sharpness Abdominal Pain Onset Location: RUQ, RLQ Pain Radiation: no radiation Severity of Pain-Max: severe Severity of Pain-Current: mild Modifying Factors: Worsens With: coughing, movement, palpation Associated Symptoms: denies symptoms Previous symptoms: no prior history Allergies/Adverse Reactions: levofloxacin [From Levaquin] Allergy (Severe, Verified 09/12/21 11:15) Hives Hx Tetanus, Diphtheria Vaccination/Date Given: No Hx Influenza Vaccination/Date Given: No Hx Pneumococcal Vaccination/Date Given: No Travel Risk - International Travel Have you traveled outside of the country in past 3 weeks: No - Coronavirus Screening Are you exhibiting any of the following symptoms?: No Close contact with a COVID-19 positive Pt in past 14-21 Days: No - Vaccine Status Have you recieved a Covid-19 vaccination: No - Review of Systems Constitutional: No Symptoms Eyes: No Symptoms Ears, Nose, & Throat: No Symptoms Respiratory: No Symptoms Cardiac: No Symptoms Abdominal/Gastrointestinal: Abdominal Pain, Constipation Genitourinary Symptoms: No Symptoms Musculoskeletal: No Symptoms Skin: No Symptoms Neurological: No Symptoms Psychological: No Symptoms Endocrine: No Symptoms Hematologic/Lymphatic: No Symptoms Immunological/Allergic: No Symptoms - Past Medical History Pertinent Past Medical History: No - Past Surgical History Past Surgical History: Yes Gastrointestinal: Appendectomy Female Surgical History: Section Other Surgical History: breast reduction - Social History Smoking Status: Never smoker Exposure to second hand smoke: No Drug Use: none Patient Lives Alone: No - Female History Hx Now: No (no sex since surgery) - Nursing Vital Signs Nursing Vital Signs: Initial Vital Signs Temperature 98.4 F 09/12/21 11:03 Pulse Rate 78 09/12/21 11:03 Blood Pressure 117/87 09/12/21 11:03 O2 Sat by Pulse Oximetry 98 09/12/21 11:03 Pain Scale Pain Intensity 6 - Physical Exam General Appearance: no apparent distress, alert Eye Exam: PERRL/EOMI, eyes nml inspection Ears, Nose, Throat Exam: normal ENT inspection, TMs normal, pharynx normal, moist mucous membranes Neck Exam: normal inspection, non-tender, supple, full range of motion Respiratory Exam: normal breath sounds, lungs clear Cardiovascular Exam: regular rate/rhythm, normal heart sounds Gastrointestinal/Abdomen Exam: soft, normal bowel sounds, tenderness (Right u pper and lower quadrant without guarding or rebound. Well-healed incisions) Back Exam: normal inspection, normal range of motion, No CVA tenderness Extremity Exam: normal inspection, tenderness Neurologic Exam: alert, oriented x 3, cooperative Skin Exam: normal color SpO2 Interpretation: normal SpO2: 98 O2 Delivery: Room Air Ordered Tests: Active Orders 24 hr Category Date Time Status IV Insertion STAT Care 09/12/21 12:13 Completed ABDOMEN AND PELVIS W CONTRAST [CT] Stat Exams 09/12/21 11:37 Completed CBC W DIFF Stat Lab 09/12/21 12:20 Completed CMP Stat Lab 09/12/21 12:20 Completed LIPASE Stat Lab 09/12/21 12:20 Completed Lab/Rad Data: Laboratory Result Diagrams 09/12/21 12:20 09/12/21 12:20 Laboratory Results 09/12/21 09/12/21 Range/Units 12:20 12:20 WBC 5.8 (4.0-10.5) K/mm3 RBC 4.22 (4.1-5.4) M/mm3 Hgb 13.4 (12.0-16.0) gm/dl Hct 40.8 (35-47) % MCV 96.7 (78-100) fl MCH 31.8 (26-32) pg MCHC 32.8 (32-36) g/dl RDW 13.5 (11.5-14.0) % Plt Count 207 (150-450) K/mm3 MPV 10.4 (7.5-11.0) fl Gran % 60.5 (36.0-66.0) % Eos # (Auto) 0.15 (0-0.5) Absolute Lymphs (auto) 1.56 (1.0-4.6) Absolute Monos (auto) 0.55 (0.0-1.3) Lymphocytes % 26.9 (24.0-44.0) % Monocytes % 9.5 (0.0-12.0) % Eosinophils % 2.6 (0.00-5.0) % Basophils % 0.5 (0.0-0.4) % Absolute Granulocytes 3.52 (1.4-6.9) Basophils # 0.03 (0-0.4) Sodium 136 L (137-145) mmol/L Potassium 3.9 (3.5-5.1) mmol/L Chloride 101 (98-107) mmol/L Carbon Dioxide 25 (22-30) mmol/L Anion Gap 13.9 (5-15) MEQ/L BUN 16 (7-17) mg/dL Creatinine 0.73 (0.52-1.04) mg/dL Estimated GFR > 60.0 ML/MIN Glucose 82 (74-106) mg/dL Calcium 9.1 (8.4-10.2) mg/dL Total Bilirubin 0.60 (0.2-1.3) mg/dL AST 28 (14-36) U/L ALT 33 (0-35) U/L Alkaline Phosphatase 131 H (38-126) U/L Serum Total Protein 7.0 (6.3-8.2) g/dL Albumin 4.1 (3.5-5.0) g/dL Lipase 76 (23-300) U/L - Progress Progress: pain not gone completely Progress Note: 09/12/21 12:56 She is off pain medication which she refused. Has normal white count, grossly unremarkable chemistries. CT rule out any abscess, perforation, obstruction, cholecystitis, did show some element of constipation and bilateral ovarian cysts. Recommended outpatient follow-up. Discussed signs symptoms of worsening needing return to ER which she seems understanding. Counseled pt/family regarding: lab results, diagnosis, need for follow-up, rad results - Departure Departure Disposition: Home Clinical Impression: Right sided abdominal pain, Constipation, Ovarian cyst Condition: Stable Critical Care Time: No Referrals: MARCUS COLON [Primary Care Provider] - Follow up/PCP as directed (1-2 days for reevaluation) MAGALY HUGHES [COURTESY STAFF] - Follow up/PCP as directed (Call for reevaluation) GABRIELA FREY DO [ACTIVE STAFF] - Follow up/PCP as directed (Call for reevaluation of ovarian cysts) Instructions: Acute Abdomen (Belly Pain), Adult (DC) Additional Instructions: Follow-up with primary care and GI/CORRECTIONAL AGENCY DIRECTOR for reevaluation. Return to ER for worsening pain. Take Tylenol/ibuprofen as needed. Take daily MiraLAX and stool softeners. Prescriptions: Docusate Sodium 100 mg [Colace 100 MG] 100 mg PO BID #60 cap Polyethylene Glycol 3350 17 gm [Miralax Powder 17GM PACKET] 17 gm PO DAILY #30 packet
--- NOTE | 2021-09-12 12:25 | XRAY ---
Indication: Pain following appendectomy. Constipation. Multiple contiguous images obtained through the abdomen and pelvis using 80 cc Isovue 370 contrast. Comparison: August 13, 2021. Lung bases again demonstrate mild dependent atelectasis. Heart not enlarged. Noncontrasted stomach and bowel loops nonobstructed. There has been interval appendectomy. New mild diffuse scattered colonic fecal debris throughout. Enlarging bilateral ovary cysts, largest measuring 2.2 cm bilaterally. No free fluid/air. Uterus now demonstrates thickened endometrium measuring 1.7 cm. Remaining liver, gallbladder, pancreas, spleen, adrenal glands, kidneys, ureters, bladder, uterus, and aorta are unremarkable. No pathologic retroperitoneal lymphadenopathy. Impression: 1. Status post appendectomy without complications. 2. New mild diffuse fecal stasis. 3. Interval enlarging bilateral ovary cysts without free fluid. Uterus thickened endometrium that should be correlated with patient's menstrual cycle.
[2021-09-12 12:39] LABS: Absolute Neutrophil Ct (ANC) 3.52 (1.4-6.9); Basophil (Absolute #) 0.03 (0-0.4); Eosinophil % 2.6 % (0.00-5.0); Eosinophil (Absolute #) 0.15 (0-0.5); Hematocrit 40.8 % (35-47); Hemoglobin 13.4 gm/dl (12.0-16.0); Lymphocyte (Absolute #) 1.56 (1.0-4.6); Lymphocytes % 26.9 % (24.0-44.0); Mean Cell Volume 96.7 fl (78-100); Mean Corpuscular Hemoglobin 31.8 pg (26-32); Mean Corpuscular Hgb Concent. 32.8 g/dl (32-36); Mean Platelet Volume 10.4 fl (7.5-11.0); Monocyte (Absolute #) 0.55 (0.0-1.3); Monocytes % 9.5 % (0.0-12.0); Neutrophil % 60.5 % (36.0-66.0); Platelet Count 207 K/mm3 (150-450); Red Blood Count 4.22 M/mm3 (4.1-5.4); Red Cell Distribution Width 13.5 % (11.5-14.0); White Blood Count 5.8 K/mm3 (4.0-10.5)
[2021-09-12 12:57] LABS: ALBUMIN 4.1 g/dL (3.5-5.0); ALKALINE PHOSPHATASE 131 U/L (38-126); ANION GAP 13.9 MEQ/L (5-15); BLOOD UREA NITROGEN 16 mg/dL (7-17); CHLORIDE 101 mmol/L (98-107); Calcium 9.1 mg/dL (8.4-10.2); Carbon Dioxide 25 mmol/L (22-30); Creatinine 1 0.73 mg/dL (0.52-1.04); EST GLOMERULAR FILTRATION RATE > 60.0 ML/MIN; Glucose 82 mg/dL (74-106); LIPASE 76 U/L (23-300); Potassium 3.9 mmol/L (3.5-5.1); SGOT/AST 28 U/L (14-36); SGPT/ALT 33 U/L (0-35); SODIUM 136 mmol/L (137-145)
[2021-09-12 13:39] VITALS: BP 145/95; PULSE 80
[2021-09-12 17:37] VITALS: O2SAT 98
== END 2021-09-12 13:41 | disposition home or self-care (01) ==
LOC: ED 10:58
DX: R10.11 Right upper quadrant pain (principal); R10.31 Right lower quadrant pain; K59.00 Constipation, unspecified; N83.202 Unspecified ovarian cyst, left side; N83.201 Unspecified ovarian cyst, right side
CPT/HCPCS: 36000; 36415; 74177; 80053; 83690; 85025; 99284